=== PATIENT | male | born 1960 | race Caucasian/White ===

== ENCOUNTER 2018-10-07 17:23 | Inpatient (IN) | payer OTHER ==
[~2018-10-07] VITALS: Ht 180.3 cm; Wt 88.5 kg
[2018-10-07] MEDS ORDERED: THIAMINE HCL 100 MG/ML 2ML VIAL ONE (17:44)
[2018-10-07] MEDS ORDERED: SODIUM CHLORIDE 0.9% 1000ML 1,000 ML IV ONE (17:45)
[2018-10-07] MEDS ORDERED: SODIUM CHLORIDE 0.9% 100 ML IV ONE ×2 (17:45→18:16)
[2018-10-07 18:03] LABS: BASOPHILS % (AUTO) 0.9 % (0.0-5.0); EOSINOPHILS % (AUTO) 1.8 % (0.0-8.0); LYMPHOCYTES % (AUTO) 36.8 % (21.0-51.0); MEAN CORPUSCULAR HEMOGLOBIN 33.3 pg (27.0-33.0); MEAN CORPUSCULAR HGB CONC 33.9 g/dL (32.0-36.0); MEAN CORPUSCULAR VOLUME 98.2 fL (79-99); MONOCYTES % (AUTO) 6.1 % (3.0-13.0); NEUTROPHILS % (AUTO) 54.4 % (40.0-77.0); NUCLEATED RED BLOOD CELLS 0.1 % (0.0-0.19); PLATELET COUNT (AUTO) 152 K/uL (130-400); RED BLOOD CELL COUNT(AUTO) 4.99 MIL/uL (4.50-6.20); RED CELL DISTRIBUTION WIDTH 17.3 % (11.0-15.5)
[2018-10-07] MEDS ORDERED: OCTREOTIDE ACETATE 100 MCG/ML AMP ONE (18:14)
[2018-10-07 18:36] LABS: CREATININE 0.8 mg/dL (0.5-1.5); POTASSIUM 4.1 mmol/L (3.5-5.1)
[2018-10-07 18:46] LABS: ALBUMIN 3.4 g/dL (3.5-5.0); BILIRUBIN,TOTAL 1.3 mg/dL (0.2-1.0); TOTAL PROTEIN, SERUM 7.5 g/dL (6.0-8.3)
[2018-10-07 19:06] LABS: INR 0.99 (0.85-1.15); PARTIAL THROMBOPLASTIN TIME 26.9 SEC (26.3-35.5); PROTHROMBIN TIME 10.4 SEC (9.6-11.6)
[2018-10-07] MEDS ORDERED: CEFTRIAXONE SODIUM 1 GM ONE (19:29)
[2018-10-07] MEDS: SODIUM CHLORIDE 0.9% 1000ML 1,000 ML IV SCH (19:38)
[2018-10-07] MEDS ORDERED: ONDANSETRON HCL 4 MG/2 ML VIAL ONE (19:41)
[2018-10-07] MEDS ORDERED: M.V.I. IV [ADULT] 10 ML, FOLIC ACID 1 MG, THIAMINE HCL 100 MG in SODIUM CHLORIDE 0.9% 1... IV SCH (19:45)
[2018-10-07] MEDS ORDERED: ACETAMINOPHEN EXTRA STRENGTH 500 MG TABLET PO PRN (19:45)
[2018-10-07] MEDS: THIAMINE HCL 100 MG, FOLIC ACID 1 MG, M.V.I. IV [ADULT] 10 ML in SODIUM CHLORIDE 0.9% 1... IV SCH (19:45)
[2018-10-07] MEDS ORDERED: CHLORDIAZEPOXIDE HCL 25 MG CAP PO PRN ×2 (19:45)
[2018-10-07] MEDS ORDERED: ACETAMINOPHEN 650 MG SUPPOSITORY RC PRN ×2 (19:45)
[2018-10-07] MEDS ORDERED: LORAZEPAM 2 MG/ML 1 ML VIAL IVP PRN ×2 (19:45)
[2018-10-07] MEDS ORDERED: OCTREOTIDE ACETATE 500 MCG in SODIUM CHLORIDE 0.9% 97.5 ML IV SCH (19:45)
[2018-10-07] MEDS ORDERED: NITROGLYCERIN 0.4 MG SL TAB SL PRN (19:45)
[2018-10-07] MEDS ORDERED: PHARMACY COMMUNICATION MISC PRN (19:45)
[2018-10-07] MEDS ORDERED: ONDANSETRON HCL 4 MG/2 ML VIAL IV PRN (19:45)
[2018-10-07] MEDS ORDERED: PROMETHAZINE HCL 25 MG TABLET PO PRN (19:45)
[2018-10-07 19:56] LABS: PHOSPHORUS 3.4 mg/dL (2.5-4.9)
[2018-10-07 19:57] LABS: MAGNESIUM 1.7 mg/dL (1.80-2.40)
[2018-10-07] MEDS ORDERED: MAGNESIUM 2GM PREMIX 50ML 50 ML IV ONE (20:26)
[2018-10-07] MEDS ORDERED: MAGNESIUM 2GM PREMIX 50ML 50 ML IV PRN (22:45)
[2018-10-07] MEDS ORDERED: HYDRALAZINE HCL 20 MG/ML VIAL IV PRN (22:45)
[2018-10-07 22:46] LABS: APPEARANCE,URINE Clear (CLEAR); BILIRUBIN,URINE Negative (NEGATIVE); COLOR,URINE Dark Yellow (YELLOW); GLUCOSE, URINE (UA) Negative (NEGATIVE); KETONES,URINE 15 mg/dL (NEGATIVE); LEUKOCYTE ESTERASE ,URINE Negative (NEGATIVE); NITRATE,URINE Negative (NEGATIVE); OCCULT BLOOD,URINE Negative (NEGATIVE); PROTEIN,URINE Negative (NEGATIVE)
[2018-10-07 22:53] LABS: AMPHET/METH SCREEN,URINE NEGATIVE (NEGATIVE); BARBITURATE SCREEN, URINE NEGATIVE (NEGATIVE); BENZODIAZEPINES SCREEN,URINE NEGATIVE (NEGATIVE); CANNABINOID SCREEN,URINE NEGATIVE (NEGATIVE); COCAINE SCREEN,URINE NEGATIVE (NEGATIVE); OPIATE SCREEN,URINE NEGATIVE (NEGATIVE); PHENCYCLIDINE SCREEN,URINE NEGATIVE (NEGATIVE)
[2018-10-08 01:03] LABS: HEMATOCRIT 40.5 % (42-54)
[2018-10-08] MEDS: SODIUM CHLORIDE 0.9% 1000ML 1,000 ML IV SCH ×3 (03:38→21:08)
[2018-10-08] MEDS ORDERED: SODIUM CHLORIDE 0.9% 1000ML 1,000 ML IV ONE (04:10)
[2018-10-08] MEDS ORDERED: SODIUM CHLORIDE 0.9% 100 ML IV ONE (04:24)
[2018-10-08 05:53] LABS: BILIRUBIN,TOTAL 1.4 mg/dL (0.2-1.0); CREATININE 0.7 mg/dL (0.5-1.5); MAGNESIUM 1.9 mg/dL (1.80-2.40); POTASSIUM 4.3 mmol/L (3.5-5.1); TOTAL PROTEIN, SERUM 6.9 g/dL (6.0-8.3)
[2018-10-08 06:03] LABS: BASOPHILS % (AUTO) 0.4 % (0.0-5.0); HEMATOCRIT 40.6 % (42-54); MEAN CORPUSCULAR HEMOGLOBIN 33.4 pg (27.0-33.0); MEAN CORPUSCULAR HGB CONC 33.8 g/dL (32.0-36.0); MEAN CORPUSCULAR VOLUME 98.9 fL (79-99); MONOCYTES % (AUTO) 11.3 % (3.0-13.0); NEUTROPHILS % (AUTO) 73.3 % (40.0-77.0); NUCLEATED RED BLOOD CELLS 0.1 % (0.0-0.19); PLATELET COUNT (AUTO) 98 K/uL (130-400); RED BLOOD CELL COUNT(AUTO) 4.11 MIL/uL (4.50-6.20); RED CELL DISTRIBUTION WIDTH 17.4 % (11.0-15.5); WHITE BLOOD COUNT (AUTO) 9.4 K/uL (4.8-10.8)
[2018-10-08] MEDS: NICOTINE 21 MG/ 24 HR PATCH TD SCH (09:00)
--- NOTE | 2018-10-08 11:01 | NUR ---
[facility] [place] met with pt and his Brii Branham [phone]. Pt reports he is independent, no DME or in home care services. transports as needed. Pt has no seen an MD since 1978, on no regular medications. Pt states MD told him he needs to stop drinking and he plans too. States vomiting blood was definetly a wake up call for him. Pt denies dc needs, plan is home with Addendum: 10/08/18 at 1104 by ELBA LOPEZ SS Amended: Links added.
[2018-10-08] MEDS ORDERED: MAGNESIUM 2GM PREMIX 50ML 50 ML IV ONE (12:42)
[2018-10-08 13:31] LABS: HEMATOCRIT 39.8 % (42-54)
--- NOTE | 2018-10-08 14:45 | NUR ---
PATIENT ARRIVE TO FLOOR FROM ER ALERT AND ORIENTATED X 3 SIDE RAILS PADDED . SANDOSTATIN DRIP AND PROTONIX DRIP . GIVEN ROCEPHIN GIVEN IN ED, PATIENT DENIES PAIN AT THIS TIME. NS INFUSING AT 125CC/HR , RECEIVED BANANA BAG TODAY LABS RESULTS REVIEWED. ON CIWA PROTOCOL, NO DT NOTED AT THIS TIME CONTINUE
[2018-10-08 16:00] VITALS: BP 169/99
[2018-10-08 19:45] VITALS: BP 167/96
[2018-10-08] MEDS: THIAMINE HCL 100 MG, FOLIC ACID 1 MG, M.V.I. IV [ADULT] 10 ML in SODIUM CHLORIDE 0.9% 1... IV SCH (21:03)
[2018-10-08 21:52] LABS: HEMATOCRIT 39.6 % (42-54)
[2018-10-08 23:27] VITALS: BP 157/94
[2018-10-09] VITALS (7 sets, daily range): BP systolic 151–174; BP diastolic 92–102
[2018-10-09] MEDS: SODIUM CHLORIDE 0.9% 1000ML 1,000 ML IV SCH ×3 (04:15→20:55)
[2018-10-09] MEDS: NICOTINE 21 MG/ 24 HR PATCH TD SCH (09:14)
[2018-10-09 10:00] LABS: HEMATOCRIT 41.6 % (42-54)
[2018-10-09 14:04] LABS: HEMATOCRIT 40.4 % (42-54)
[2018-10-09] MEDS: PANTOPRAZOLE SODIUM 80 MG in SODIUM CHLORIDE 0.9% 100 ML IV SCH (17:14)
[2018-10-09] MEDS: THIAMINE HCL 100 MG, FOLIC ACID 1 MG, M.V.I. IV [ADULT] 10 ML in SODIUM CHLORIDE 0.9% 1... IV SCH (20:55)
[2018-10-09 21:12] LABS: HEMATOCRIT 40.4 % (42-54)
[2018-10-10] MEDS: PANTOPRAZOLE SODIUM 80 MG in SODIUM CHLORIDE 0.9% 100 ML IV SCH (01:41)
[2018-10-10 03:28] VITALS: BP 172/97
[2018-10-10 05:55] LABS: HEMATOCRIT 39.5 % (42-54); MEAN CORPUSCULAR HEMOGLOBIN 33.3 pg (27.0-33.0); MEAN CORPUSCULAR VOLUME 98.1 fL (79-99); PLATELET COUNT (AUTO) 90 K/uL (130-400); RED BLOOD CELL COUNT(AUTO) 4.03 MIL/uL (4.50-6.20); RED CELL DISTRIBUTION WIDTH 16.5 % (11.0-15.5); WHITE BLOOD COUNT (AUTO) 6.2 K/uL (4.8-10.8)
[2018-10-10 06:04] LABS: CREATININE 0.6 mg/dL (0.5-1.5); POTASSIUM 3.2 mmol/L (3.5-5.1)
--- NOTE | 2018-10-10 08:00 | NUR ---
PT AAO X 3 REVIEW PLAN OF CARE, DENIES ANY WITHDRAWNS , , OR ANXIETY,, CALL LIGHT IN REACH..
[2018-10-10 08:09] VITALS: BP 181/103
[2018-10-10] MEDS: NICOTINE 21 MG/ 24 HR PATCH TD SCH (08:29)
[2018-10-10] MEDS ORDERED: THIA100T78 PO (09:42)
[2018-10-10] MEDS ORDERED: METO25TA6 PO (09:42)
[2018-10-10] MEDS ORDERED: FOLI1TAB15 PO (09:42)
[2018-10-10] MEDS ORDERED: POTASSIUM CHLORIDE 20 MEQ ERTAB PO SCH ×2 (09:45→13:00)
[2018-10-10] MEDS ORDERED: METOPROLOL TARTRATE 25 MG TAB PO SCH ×3 (09:45→21:00)
[2018-10-10 12:12] VITALS: BP 162/95
--- NOTE | 2018-10-10 14:48 | NUR ---
B/P OF 169/99. AFTER GIVEN PT . SOME LOPRESSOR 25 MG PO NOW DOSE. DUE TO B/P BEFORE OF 162/107 HEART RATE OF 74, RR 0F 18
--- NOTE | 2018-10-10 14:52 | NUR ---
CARLEY AVALOS [employer]IST. HERE AND UPDATE OF PT. B/P STATUS , , RECHECK PRIOR OF GOING HOME,
--- NOTE | 2018-10-10 15:13 | NUR ---
RD Notification Pt tolerating Soft, Mechanical soft Diet with no report of GI distress and PO intake at 100%. Pt LBM 10/07/18. Pt monitored labs: K 3.2, BUN 5, Ca 7.4, Alb 3.0. Pt with alcohol abuse; Rec to add Vitamin B complex supplementation. RD to continue to monitor. Please notify RD as additional nutritional concerns arise. Thank you. Addendum: 10/10/18 at [address] Amended: Links added.
[2018-10-10] MEDS ORDERED: HYDRALAZINE HCL 20 MG/ML VIAL IV SCH ×2 (15:30→18:00)
[2018-10-10 16:00] VITALS: BP 168/90
--- NOTE | 2018-10-10 16:30 | NUR ---
B/P OF NOTED . CALLED [facility] [employer]. OF B/P STATUS ,WITH NEW ORDERS FOR IV APRESOLINE . 10 MG IV . FOR B/P STATUS, ,
--- NOTE | 2018-10-10 17:48 | NUR ---
B/P OF 160 /99/ HR OF 70, WITH A DOSE OF APRESOLINE 10 MG IV . GIVEN SLOWLY . GOAL OF SYSTOLIC LESS THAN 150, ORDER WILL HAVE A RECHECK OF B/P
--- NOTE | 2018-10-10 18:30 | NUR ---
B/P OF 138/87. HR OF 87, AFTER THE DOSE OF APRESOLINE GOAL MET. SYSTOLIC LESS THAN 150. DISCHARGE ORDER AFTER B/P IS CONTROL.
--- NOTE | 2018-10-10 18:50 | NUR ---
DISCHARGE SUMMARY REVIEW WITH PT. NATHEN TO HIS RT AND LT HAND DC. WITH NO HEMATOMA NOTE.D REVIEW IMPORTANCE OF B/P TO BE MONITOR AND TO SEE HIS PRIVATE DR. STATED THAT HE SEE DR. TORRES. ERROL MEDICATION TO FOLLOW WITH HIS CARE. AND AWARE OF HIS MEDICATION S QUESTION REVIEW AND CARE . NOTED NO ACHOLOL WITH DRAWS . .
== END 2018-10-10 19:00 | disposition home or self-care (01) | DRG 370 ==
LOC: EDH 17:23 → EDHIP 17:24 → 3AH 10-08 14:45 → EDHIP 10-08 14:45 → 3AH 10-08 17:24
PROVIDERS: ADMIT Internal Medicine; ATTEND Internal Medicine
DX: K22.6 Gastro-esophageal laceration-hemorrhage syndrome (principal); K92.0 Hematemesis; K70.10 Alcoholic hepatitis without ascites; F10.129 Alcohol abuse with intoxication, unspecified; F17.210 Nicotine dependence, cigarettes, uncomplicated; I10 Essential (primary) hypertension; F12.90 Cannabis use, unspecified, uncomplicated; E83.42 Hypomagnesemia; E87.6 Hypokalemia; F41.9 Anxiety disorder, unspecified; J45.909 Unspecified asthma, uncomplicated; K21.9 Gastro-esophageal reflux disease without esophagitis; Z82.49 Family history of ischemic heart disease and other diseases of the circulatory system; Z82.0 Family history of epilepsy and other diseases of the nervous system
CPT/HCPCS: 36415; 70450; 71045; 80048; 80053; 80305; 81003; 82550; 83735; 84100; 84484; 85014; 85018; 85025; 85027; 85610; 85730; 86850; 86900; 86901; 93005; 99291; C9113; G0378; G0480; J0360; J0696; J2354; J2405; J3411; J3475; J3490; J7030

== ENCOUNTER 2020-08-16 14:00 | Emergency (ER) | payer OTHER ==
[~2020-08-16 14:00] MED LIST: FOLI1TAB15 PO; METO25TA6 PO; THIA100T78 PO
[2020-08-16 14:23] LABS: BASOPHILS % (AUTO) 2.3 % (0.0-5.0); EOSINOPHILS % (AUTO) 2.2 % (0.0-8.0); HEMATOCRIT 39.4 % (42-54); LYMPHOCYTES % (AUTO) 39.6 % (21.0-51.0); MEAN CORPUSCULAR HEMOGLOBIN 33.8 pg (27.0-33.0); MEAN CORPUSCULAR HGB CONC 34.3 g/dL (32.0-36.0); MEAN CORPUSCULAR VOLUME 98.5 fL (79-99); MONOCYTES % (AUTO) 8.8 % (3.0-13.0); NEUTROPHILS % (AUTO) 46.6 % (40.0-77.0); PLATELET COUNT (AUTO) 196 K/uL (130-400); RED CELL DISTRIBUTION WIDTH 14.8 % (11.0-15.5)
[2020-08-16 14:33] LABS: CREATININE 0.8 mg/dL (0.5-1.5); POTASSIUM 3.6 mmol/L (3.5-5.1)
[2020-08-16 14:34] LABS: INR 1.09 (0.85-1.15); PROTHROMBIN TIME 11.8 SEC (9.6-11.6)
[2020-08-16 14:39] LABS: ALBUMIN 3.2 g/dL (3.5-5.0); BILIRUBIN,TOTAL 0.9 mg/dL (0.2-1.0); TOTAL PROTEIN, SERUM 7.3 g/dL (6.0-8.3)
[2020-08-16] MEDS ORDERED: THIAMINE HCL 100 MG/ML 2ML VIAL ONE (14:51)
[2020-08-16 15:11] LABS: APPEARANCE,URINE Clear (CLEAR); BILIRUBIN,URINE Negative (NEGATIVE); COLOR,URINE Dark Yellow (YELLOW); GLUCOSE, URINE (UA) Negative (NEGATIVE); KETONES,URINE Negative (NEGATIVE); LEUKOCYTE ESTERASE ,URINE Trace (NEGATIVE); NITRATE,URINE Negative (NEGATIVE); OCCULT BLOOD,URINE Negative (NEGATIVE); PROTEIN,URINE Negative (NEGATIVE)
[2020-08-16 15:18] LABS: AMPHET/METH SCREEN,URINE NEGATIVE (NEGATIVE); BARBITURATE SCREEN, URINE NEGATIVE (NEGATIVE); BENZODIAZEPINES SCREEN,URINE NEGATIVE (NEGATIVE); CANNABINOID SCREEN,URINE NEGATIVE (NEGATIVE); COCAINE SCREEN,URINE NEGATIVE (NEGATIVE); OPIATE SCREEN,URINE NEGATIVE (NEGATIVE); PHENCYCLIDINE SCREEN,URINE NEGATIVE (NEGATIVE)
[2020-08-16 15:28] LABS: BACTERIA,URINE Few /HPF (None Seen); RBC,URINE 0-1 /HPF (0-1); SQUAMOUS EPITHELIAL CELL,UR Few /HPF (0-2)
== END 2020-08-16 20:31 | disposition home or self-care (01) ==
LOC: EDH 14:00
DX: F10.129 Alcohol abuse with intoxication, unspecified (principal); L55.0 Sunburn of first degree; J45.909 Unspecified asthma, uncomplicated; Z88.0 Allergy status to penicillin; Z72.0 Tobacco use
CPT/HCPCS: 36415; 71045; 80053; 80305; 81001; 82550; 83880; 84484; 85025; 85610; 85730; 93005; 96365; 96366; 99285; J3411

== ENCOUNTER 2020-11-09 10:01 | Inpatient (IN) | payer OTHER ==
[2020-11-09] VITALS (17 sets, daily range): BP systolic 65–109; BP diastolic 26–65
[~2020-11-09] VITALS: Ht 182.9 cm; Wt 100.1 kg
[2020-11-09] MEDS ORDERED: DEXTROSE 50%-WATER 50 ML DISP.SYRIN IV ONE ×4 (10:13→23:45)
[2020-11-09] MEDS ORDERED: DEXTROSE 50%-WATER 50 ML DISP.SYRIN IV SCH (10:30)
[2020-11-09 10:52] LABS: BASOPHILS % (AUTO) 0.2 % (0.0-5.0); EOSINOPHILS % (AUTO) 0.1 % (0.0-8.0); HEMATOCRIT 34.4 % (42-54); LYMPHOCYTES % (AUTO) 6.3 % (21.0-51.0); MEAN CORPUSCULAR HEMOGLOBIN 36.3 pg (27.0-33.0); MEAN CORPUSCULAR HGB CONC 36.6 g/dL (32.0-36.0); MEAN CORPUSCULAR VOLUME 99.1 fL (79-99); MONOCYTES % (AUTO) 4.1 % (3.0-13.0); NEUTROPHILS % (AUTO) 87.6 % (40.0-77.0); PLATELET COUNT (AUTO) 98 K/uL (130-400); RED BLOOD CELL COUNT(AUTO) 3.47 MIL/uL (4.50-6.20); RED CELL DISTRIBUTION WIDTH 15.2 % (11.0-15.5); WHITE BLOOD COUNT (AUTO) 26.8 K/uL (4.8-10.8)
[2020-11-09 11:05] LABS: ALANINE AMINOTRANSFERASE 105 U/L (12-78); ALBUMIN 1.4 g/dL (3.5-5.0); ALCOHOL, BLOOD < 3 mg/dL (0-10); ASPARTATE AMINOTRANSFERASE 392 U/L (10-37); CARBON DIOXIDE 13 mmol/L (21-32); GLOMERULAR FILTR. RATE CALC 7 mL/min (>60); GLUCOSE,RANDOM 54 mg/dL (70-105); POTASSIUM 5.6 mmol/L (3.5-5.1); SODIUM SERUM 116 mmol/L (136-145); TOTAL PROTEIN, SERUM 4.6 g/dL (6.0-8.3)
[2020-11-09 11:06] LABS: ACETAMINOPHEN < 1 mcg/mL (10-29)
[2020-11-09 11:07] LABS: SALICYLATE < 2.8 mg/dL (2.8-20.0)
[2020-11-09 11:08] LABS: CHLORIDE 80 mmol/L (101-111)
[2020-11-09 11:09] LABS: UREA NITROGEN, BLOOD 97 mg/dL (7-18)
[2020-11-09 11:10] LABS: AMMONIA 159 umol/L (11-32); CREATININE 8.5 mg/dL (0.5-1.5)
[2020-11-09] MEDS ORDERED: LACTULOSE 20 GM/30 ML UDCUP PO SCH (11:15)
[2020-11-09] MEDS: 0.9%NACL 1000ML 1,000 ML IV SCH ×2 (11:15→18:22)
[2020-11-09 11:24] LABS: INR 5.42 (0.85-1.15); PARTIAL THROMBOPLASTIN TIME 101.6 SEC (26.3-35.5); PROTHROMBIN TIME 50.7 SEC (9.6-11.6)
[2020-11-09 11:36] LABS: LIPASE 1584 U/L (114-286)
[2020-11-09 11:41] LABS: BILIRUBIN,DIRECT 21.7 mg/dL (0.0-0.3); BILIRUBIN,TOTAL 29.4 mg/dL (0.2-1.0)
[2020-11-09] MEDS ORDERED: MEROPENEM 1 GM VIAL IVP SCH (11:49)
[2020-11-09] MEDS ORDERED: CALCIUM GLUC 1GM VIAL IV SCH ×2 (12:15→21:30)
[2020-11-09] MEDS ORDERED: PHARMACY COMMUNICATION MISC SCH ×3 (12:15→12:45)
[2020-11-09] MEDS ORDERED: KAYEXALATE 15GM/60ML PO ONE (13:00)
[2020-11-09] MEDS ORDERED: PHYTONADIONE 10 MG/1 ML AMP IV SCH (13:00)
[2020-11-09] MEDS ORDERED: FUROSEMIDE 20MG VIAL IV ONE (13:00)
[2020-11-09] MEDS ORDERED: PHYTONADIONE 10 MG in 0.9%NACL 50ML 50 ML IV ONE (13:30)
[2020-11-09] MEDS: PANTOPRAZOLE 40 MG/VIAL IVP SCH (13:37)
[2020-11-09 13:52] LABS: PHOSPHORUS 10.8 mg/dL (2.5-4.9); THYROID STIMULATING HORMONE 0.47 uIU/mL (0.36-3.74)
[2020-11-09] MEDS: MIDODRINE HCL 5 MG TABLET PO SCH ×2 (14:00→21:00)
[2020-11-09] MEDS ORDERED: MIDODRINE HCL 5 MG TABLET PO SCH (14:00)
[2020-11-09] MEDS: OCTREOTIDE ACETATE 100 MCG/ML AMP IV SCH ×2 (14:00→21:00)
[2020-11-09] MEDS: LACTATED RINGERS 1000ML 500 ML IV SCH ×2 (14:05→21:00)
[2020-11-09 14:29] LABS: AMPHET/METH SCREEN,URINE NEGATIVE (NEGATIVE); BARBITURATE SCREEN, URINE NEGATIVE (NEGATIVE); BENZODIAZEPINES SCREEN,URINE NEGATIVE (NEGATIVE); CANNABINOID SCREEN,URINE NEGATIVE (NEGATIVE); COCAINE SCREEN,URINE NEGATIVE (NEGATIVE); CREATININE,URINE RANDOM 111 mg/dL (30-135); OPIATE SCREEN,URINE NEGATIVE (NEGATIVE); PHENCYCLIDINE SCREEN,URINE NEGATIVE (NEGATIVE); SODIUM,URINE RANDOM 17 mmol/l (40-220)
[2020-11-09 14:43] LABS: ABG OXYGEN SATURATION 62.3 % (95.0-99.0); ABG PCO2 25 mmHg (35-48)
[2020-11-09] MEDS: LACTULOSE 20 GM/30 ML UDCUP PO SCH ×2 (15:19→21:32)
[2020-11-09] MEDS: ALBUMIN (HUMAN) 25% 100 ML IV SCH ×2 (15:19→21:03)
[2020-11-09] MEDS: MORPHINE 2 MG SYG IVP PRN (17:04)
[2020-11-09] MEDS ORDERED: VASOPRESSIN 20 UNITS in 0.9%NACL 100ML 100 ML IV SCH (18:00)
[2020-11-09 20:10] LABS: CARBON DIOXIDE 14 mmol/L (21-32); GLOMERULAR FILTR. RATE CALC 7 mL/min (>60); SODIUM SERUM 120 mmol/L (136-145)
[2020-11-09 20:18] LABS: CHLORIDE 85 mmol/L (101-111); CREATININE 8.6 mg/dL (0.5-1.5); UREA NITROGEN, BLOOD 99 mg/dL (7-18)
[2020-11-09 20:45] LABS: GLUCOSE,RANDOM < 1 mg/dL (70-105)
[2020-11-09] MEDS ORDERED: DEXTROSE 10%-WATER 1,000 ML IV SCH (23:45)
[2020-11-10] VITALS (45 sets, daily range): BP systolic 82–124; BP diastolic 38–69
[2020-11-10] MEDS: NOREPINEPHRINE 4MG/NS 250ML 250 ML IV SCH ×2 (00:02→03:42)
[2020-11-10] MEDS: 0.9%NACL 1000ML 1,000 ML IV SCH ×3 (00:04→13:55)
[2020-11-10] MEDS ORDERED: DEXTROSE 50%-WATER 50 ML DISP.SYRIN IV ONE (03:42)
[2020-11-10] MEDS: LACTULOSE 20 GM/30 ML UDCUP PO SCH ×2 (03:45→08:00)
[2020-11-10 06:35] LABS: POTASSIUM 5.9 mmol/L (3.5-5.1)
[2020-11-10 06:37] LABS: BASOPHILS % (AUTO) 0.5 % (0.0-5.0); EOSINOPHILS % (AUTO) 0.1 % (0.0-8.0); HEMATOCRIT 32.4 % (42-54); LYMPHOCYTES % (AUTO) 3.6 % (21.0-51.0); MEAN CORPUSCULAR HEMOGLOBIN 37.6 pg (27.0-33.0); MEAN CORPUSCULAR HGB CONC 37.3 g/dL (32.0-36.0); MEAN CORPUSCULAR VOLUME 100.6 fL (79-99); MONOCYTES % (AUTO) 3.7 % (3.0-13.0); NEUTROPHILS % (AUTO) 87.6 % (40.0-77.0); NUCLEATED RED BLOOD CELLS 0.1 % (0.0-0.19); PLATELET COUNT (AUTO) 80 K/uL (130-400); RED BLOOD CELL COUNT(AUTO) 3.22 MIL/uL (4.50-6.20); RED CELL DISTRIBUTION WIDTH 15.4 % (11.0-15.5)
[2020-11-10 06:43] LABS: WHITE BLOOD COUNT (AUTO) 37.7 K/uL (4.8-10.8)
[2020-11-10] MEDS: ALBUMIN (HUMAN) 25% 100 ML IV SCH ×2 (08:26→14:00)
[2020-11-10] MEDS: OCTREOTIDE ACETATE 100 MCG/ML AMP IV SCH ×2 (08:26→14:00)
[2020-11-10] MEDS: PANTOPRAZOLE 40 MG/VIAL IVP SCH (08:26)
[2020-11-10] MEDS: MIDODRINE HCL 5 MG TABLET PO SCH ×2 (08:27→14:00)
[2020-11-10] MEDS ORDERED: MEROPENEM 500 MG VIAL IVP SCH (09:00)
[2020-11-10 09:29] LABS: BAND NEUTROPHILS % (MANUAL) 8 % (0-2); LYMPHOCYTES % (MANUAL) 6 % (22-44); MAN.DIFF COMMENT-IMPRESSION MANUAL DIFFERENTIAL; MONOCYTES % (MANUAL) 6 % (2-9); SEGMENTED NEUTROPHILS % 80 % (40-70)
[2020-11-10 09:34] LABS: PLATELET MORPHOLOGY COMMENT DECREASED
[2020-11-10] MEDS: MORPHINE 2 MG SYG IVP PRN ×2 (10:28→13:10)
[2020-11-10] MEDS ORDERED: MORPHINE 2 MG SYG IVP PRN (15:00)
[2020-11-10] MEDS ORDERED: LORAZEPAM 2 MG/ML 1 ML VIAL IVP PRN (15:00)
[2020-11-13 02:07] LABS: HEPATITIS A ANTIBODY IGM Negative (Negative); HEPATITIS B CORE IGM Negative (Negative); HEPATITIS Bs ANTIGEN SCREEN P Negative (Negative)
== END 2020-11-10 17:12 | DRG 871 ==
LOC: EDH 10:01 → EDHIP 10:02 → 2CH 22:59
PROVIDERS: ADMIT Internal Medicine; ATTEND Internal Medicine
PROC: 30233K1 Transfusion of Nonautologous Frozen Plasma into Peripheral Vein, Percutaneous Approach (ICD-10-PCS; principal; 2020-11-09)
DX: A41.9 Sepsis, unspecified organism (principal); K72.00 Acute and subacute hepatic failure without coma; R65.21 Severe sepsis with septic shock; D68.4 Acquired coagulation factor deficiency; E87.1 Hypo-osmolality and hyponatremia; E87.2 Acidosis; N17.9 Acute kidney failure, unspecified; R18.8 Other ascites; D64.9 Anemia, unspecified; I10 Essential (primary) hypertension; D69.6 Thrombocytopenia, unspecified; E16.2 Hypoglycemia, unspecified; E87.5 Hyperkalemia; F10.10 Alcohol abuse, uncomplicated; J45.909 Unspecified asthma, uncomplicated; K72.10 Chronic hepatic failure without coma; K74.60 Unspecified cirrhosis of liver; Z51.5 Encounter for palliative care; Z66 Do not resuscitate; Z82.0 Family history of epilepsy and other diseases of the nervous system; Z82.49 Family history of ischemic heart disease and other diseases of the circulatory system
CPT/HCPCS: 36415; 36600; 70450; 71045; 74018; 74176; 76705; 76770; 80048; 80053; 80074; 80076; 80305; 82140; 82435; 82533; 82570; 82803; 82947; 82948; 83605; 83690; 84100; 84132; 84295; 84300; 84443; 85018; 85025; 85384; 85610; 85730; 86701; 86850; 86900; 86901; 86927; 87040; 87088; 87390; 93005; 99291; C9113; G0378; G0481; J0610; J2060; J2185; J2354; J3430; J3490; J7030; J7070; J7120; P9017; P9046